=== PATIENT | female | born 1985 | race Caucasian/White ===

== ENCOUNTER 2019-11-12 07:43 | Emergency (ER) | payer MEDICAID ==
[~2019-11-12] VITALS: Ht 160 cm; Wt 63.6 kg
[2019-11-12 07:48] VITALS: BP 151/88; PULSE 102; TEMP 98.3
[2019-11-12] MEDS ORDERED: FLEXERIL 1010 MG/TAB PO (08:08)
[2019-11-12] MEDS ORDERED: NEURONTIN300 MG/CAP PO (08:08)
== END 2019-11-12 09:07 | disposition home or self-care (01) ==
LOC: COL.ER 07:43
DX: M54.5 Low back pain (principal)